=== PATIENT | female | born 1970 | race Caucasian/White ===

== ENCOUNTER 2018-12-13 18:48 | Inpatient (IN) | payer OTHER ==
[~2018-12-13] VITALS: Ht 170.2 cm; Wt 53.0 kg
[2018-12-13 19:14] LABS: BASOPHILS # (AUTO) 0.02 x10^3/uL (0-0.1); BASOPHILS % (AUTO) 0 % (0-1); EOSINOPHILS # (AUTO) 0.01 x10^3/uL (0-0.4); EOSINOPHILS % (AUTO) 0 % (1-7); LYMPHOCYTES # (AUTO) 1.09 x10^3/uL (1-3.4); LYMPHOCYTES % (AUTO) 13 % (22-44); MD NO; MEAN CORPUSCULAR HEMOGLOBIN 29.8 pg (27.0-34.8); MEAN CORPUSCULAR HGB CONC 32.1 g/dL (32.4-35.8); MEAN CORPUSCULAR VOLUME 92.8 fL (80-100); MEAN PLATELET VOLUME 7.6 fL (7.4-10.4); MONOCYTES % (AUTO) 2 % (2-9); NEUTROPHILS # (AUTO) 7.23 x10^3/uL (1.8-6.8); NEUTROPHILS % (AUTO) 85 % (42-75); PLATELET COUNT 383 x10^3/uL (130-400); RED BLOOD COUNT 4.48 x10^6/uL (3.82-5.3); RED CELL DISTRIBUTION WIDTH 19.3 % (9.6-15.2)
[2018-12-13 19:23] LABS: ALANINE AMINOTRANSFERASE 80 U/L (12-78); ALBUMIN 3.2 g/dL (3.4-5.0); ANION GAP 18 mmol/L (5-15); CHLORIDE 112 mmol/L (98-107); CREATININE 0.57 mg/dL (0.55-1.02)
[2018-12-13 19:28] LABS: ALKALINE PHOSPHATASE 93 U/L (45-117); BILIRUBIN,TOTAL 0.2 mg/dL (0.2-1.0); TOTAL PROTEIN 6.8 g/dL (6.4-8.2)
--- NOTE | 2018-12-13 19:32 | NUR ---
ON ARRIVAL PT CONVERSATIONAL. PT NOTED TO HAVE SHAKES AND FEELING COLD. 90.1 RECTAL TEMP. RODO HUGGER IN PLACE. REQUESTED PROTEIN DRINKS FROM DIETARY VIA VOICEMAIL. MEANWHILE PT PROVIDED GRAHMCRACKERS AND PEANUT BUTTER, SPRITE AND APPLESAUCE. PT CONVERSING WITH FAMILY
--- NOTE | 2018-12-13 20:08 | NUR ---
RODO REMAINS ON PT. PT ASSISTED ONTO BEDPAN. PROVIDED ENSURE DRINK.
--- NOTE | 2018-12-13 20:11 | NUR ---
REPORT RECEIVED FROM REAL VENEGAS TO ASSUME CARE OF PT. AT THIS TIME.
[2018-12-13 20:16] LABS: MICROSCOPIC AUTO
[2018-12-13] MEDS ORDERED: ONDANSETRON ODT 4 MG ONE (20:22)
[2018-12-13 20:23] LABS: CULTURE INDICATED? YES
--- NOTE | 2018-12-13 20:25 | NUR ---
PT. HAS SMALL AMOUNT OF EMESIS AFTER APPLESAUCE. NEW ORDERS RECEIVED FROM DR. HAINES FOR THIS AND PT. MEDICATED PER OCT. PT. DENIES ANY PAIN OR NAUSEA AT THIS TIME. LUIZA WARMER AND GOWN IN USE; BLANKETS IN USE. CALL LIGHT IN REACH. ALL MONITORS IN PLACE. ALL SAFETY MEASUSRS OBSERVED. PT. A&O X 4. SKIN PWD. RESP EVEN, NON-LABORED.
[2018-12-13] MEDS ORDERED: CEFTRIAXONE PMX 1GM/50ML 50 ML IV ONE (20:30)
[2018-12-13] MEDS ORDERED: ONDANSETRON ODT 4 MG PO ONE (20:30)
[2018-12-13] MEDS ORDERED: CEFTRIAXONE PMX 1GM/50ML 50 ML ONE (20:37)
--- NOTE | 2018-12-13 20:43 | NUR ---
DISCUSSED WITH DR. HAINES ABOUT BLOOD CULTURES PRIOR TO IV ABX; WILL WAIT TO HANG MED UNTIL 2 SETS OF BLOOD CULTURES OBTAINED.
--- NOTE | 2018-12-13 20:48 | NUR ---
DR. HAINES IN TO DISCUSS PLAN FOR ADMISSION WITH PT. AND AT BS.
--- NOTE | 2018-12-13 20:57 | NUR ---
LAB AT FOR BLOOD CULTURES.
--- NOTE | 2018-12-13 21:15 | NUR ---
ABX NOW INFUSING PER ORDER AFTER 2 SETS OF BLOOD CULTURES COMPLETED. PT. WITH LUCIO. LAUGHING WITH AT BS. ALL MONITORS REMAIN IN PLACE. CALL LIGHT IN REACH. ALL SAFETY MEASURES OBSERVED.
[2018-12-13 21:22] LABS: AMPHETAMINE SCREEN, URINE Negative (Negative); BARBITURATE SCREEN, URINE Negative (Negative); BENZODIAZEPINE SCREEN, URINE Negative (Negative); CANNABINOID SCREEN, URINE Positive (Negative); COCAINE SCREEN, URINE Negative (Negative); METHADONE SCREEN, URINE Negative (Negative); OPIATE SCREEN, URINE Negative (Negative)
--- NOTE | 2018-12-13 22:16 | NUR ---
REPORT TO REAL PATTERSON. FLOOR READY FOR PT. TRANSPORT.
[2018-12-13] MEDS: POTASSIUM CHLORIDE 20 MEQ, MAGNESIUM SULFATE 2 GM, THIAMINE 200 MG, MVI ADULT 10 ML, FO... IV SCH (22:19)
[2018-12-13] MEDS ORDERED: DEXTROSE 50%, 50ML SYRINGE IVPush PRN (22:30)
[2018-12-13] MEDS ORDERED: ENALAPRILAT 1.25 MG/ML, 2ML IVPush PRN (22:30)
[2018-12-13] MEDS ORDERED: DEXTROSE 4 GM TAB.CHEW PO PRN (22:30)
[2018-12-13] MEDS ORDERED: ACETAMINOPHEN 325 MG TABLET PO PRN (22:30)
[2018-12-13] MEDS ORDERED: PHARMACY MAY ADJ FOR RENAL FX MC PRN (22:30)
[2018-12-13] MEDS ORDERED: GLUCAGON 1 MG IM PRN (22:30)
[2018-12-13] MEDS ORDERED: CEFTRIAXONE PMX 1GM/50ML 50 ML IV SCH (22:30)
[2018-12-13] MEDS ORDERED: LACTATED RINGERS 1,000 ML IVBOLUS ONE (22:30)
[2018-12-13] MEDS ORDERED: ONDANSETRON 2MG/ML, 2ML IVPush PRN (22:30)
[2018-12-13 23:24] VITALS: BP 124/73
[2018-12-13 23:30] LABS: THYROID STIMULATING HORMONE 0.579 mIU/L (0.358-3.740)
[2018-12-14] MEDS: ENOXAPARIN 40 MG/0.4 ML SQ SCH ×2 (00:06→21:06)
[2018-12-14 00:57] LABS: BASOPHILS # (AUTO) 0.13 x10^3/uL (0-0.1); BASOPHILS % (AUTO) 1 % (0-1); EOSINOPHILS # (AUTO) 0.03 x10^3/uL (0-0.4); EOSINOPHILS % (AUTO) 0 % (1-7); LYMPHOCYTES # (AUTO) 1.24 x10^3/uL (1-3.4); LYMPHOCYTES % (AUTO) 13 % (22-44); MD NO; MEAN CORPUSCULAR HEMOGLOBIN 30.1 pg (27.0-34.8); MEAN CORPUSCULAR HGB CONC 32.8 g/dL (32.4-35.8); MEAN CORPUSCULAR VOLUME 91.6 fL (80-100); MEAN PLATELET VOLUME 7.6 fL (7.4-10.4); MONOCYTES # (AUTO) 0.67 x10^3/uL (0.2-0.8); MONOCYTES % (AUTO) 7 % (2-9); NEUTROPHILS # (AUTO) 7.26 x10^3/uL (1.8-6.8); NEUTROPHILS % (AUTO) 78 % (42-75); PLATELET COUNT 280 x10^3/uL (130-400); RED BLOOD COUNT 3.67 x10^6/uL (3.82-5.3); RED CELL DISTRIBUTION WIDTH 19.3 % (9.6-15.2)
[2018-12-14 00:58] VITALS: BP 121/70
[2018-12-14 01:02] LABS: ALANINE AMINOTRANSFERASE 60 U/L (12-78); ALBUMIN 2.6 g/dL (3.4-5.0); ANION GAP 12 mmol/L (5-15); CALCIUM 8.1 mg/dL (8.5-10.1); CHLORIDE 110 mmol/L (98-107)
[2018-12-14 01:04] LABS: ALKALINE PHOSPHATASE 67 U/L (45-117); BILIRUBIN,TOTAL 0.1 mg/dL (0.2-1.0); TOTAL PROTEIN 5.4 g/dL (6.4-8.2)
[2018-12-14] MEDS: POTASSIUM CHLORIDE 20 MEQ, MAGNESIUM SULFATE 2 GM, THIAMINE 200 MG, MVI ADULT 10 ML, FO... IV SCH (01:22)
[2018-12-14 06:50] VITALS: BP 113/77
[2018-12-14] MEDS: SODIUM CHLORIDE FLUSH 10ML SYR IVF SCH ×2 (09:37→21:06)
[2018-12-14 09:53] LABS: BASOPHILS # (AUTO) 0.03 x10^3/uL (0-0.1); BASOPHILS % (AUTO) 0 % (0-1); EOSINOPHILS # (AUTO) 0.01 x10^3/uL (0-0.4); EOSINOPHILS % (AUTO) 0 % (1-7); LYMPHOCYTES # (AUTO) 1.27 x10^3/uL (1-3.4); LYMPHOCYTES % (AUTO) 16 % (22-44); MD NO; MEAN CORPUSCULAR HEMOGLOBIN 29.1 pg (27.0-34.8); MEAN PLATELET VOLUME 7.6 fL (7.4-10.4); MONOCYTES # (AUTO) 0.37 x10^3/uL (0.2-0.8); MONOCYTES % (AUTO) 5 % (2-9); NEUTROPHILS # (AUTO) 6.52 x10^3/uL (1.8-6.8); NEUTROPHILS % (AUTO) 80 % (42-75); PLATELET COUNT 266 x10^3/uL (130-400); RED BLOOD COUNT 3.63 x10^6/uL (3.82-5.3); RED CELL DISTRIBUTION WIDTH 19.7 % (9.6-15.2)
[2018-12-14 10:11] LABS: ALANINE AMINOTRANSFERASE 54 U/L (12-78); CALCIUM 7.7 mg/dL (8.5-10.1); CREATININE 0.66 mg/dL (0.55-1.02)
[2018-12-14 10:41] LABS: ALBUMIN 2.7 g/dL (3.4-5.0); ALKALINE PHOSPHATASE 55 U/L (45-117); ANION GAP 8 mmol/L (5-15); BILIRUBIN,TOTAL 0.3 mg/dL (0.2-1.0); CHLORIDE 109 mmol/L (98-107); TOTAL PROTEIN 5.6 g/dL (6.4-8.2)
[2018-12-14 10:57] LABS: HEMOGLOBIN A1C 4.6 % (4.2-6.3)
[2018-12-14 12:27] VITALS: BP 113/78
[2018-12-14 19:26] VITALS: BP 101/68
[2018-12-15] MEDS ORDERED: POTASSIUM CHLORIDE 20 MEQ, MAGNESIUM SULFATE 2 GM, THIAMINE 200 MG, MVI ADULT 10 ML, FO... IV SCH (01:00)
[2018-12-15 01:31] VITALS: BP 110/72
[2018-12-15] MEDS ORDERED: MAGNESIUM SULFATE PMX 2GM/50ML 50 ML IV ONE (07:30)
[2018-12-15 07:51] VITALS: BP 114/73
[2018-12-15 08:36] LABS: BASOPHILS # (AUTO) 0.02 x10^3/uL (0-0.1); BASOPHILS % (AUTO) 0 % (0-1); EOSINOPHILS # (AUTO) 0.08 x10^3/uL (0-0.4); EOSINOPHILS % (AUTO) 2 % (1-7); LYMPHOCYTES % (AUTO) 35 % (22-44); MD NO; MEAN CORPUSCULAR HEMOGLOBIN 29.3 pg (27.0-34.8); MEAN CORPUSCULAR HGB CONC 32.4 g/dL (32.4-35.8); MEAN CORPUSCULAR VOLUME 90.6 fL (80-100); MEAN PLATELET VOLUME 7.6 fL (7.4-10.4); MONOCYTES # (AUTO) 0.33 x10^3/uL (0.2-0.8); MONOCYTES % (AUTO) 8 % (2-9); NEUTROPHILS % (AUTO) 56 % (42-75); PLATELET COUNT 215 x10^3/uL (130-400); RED BLOOD COUNT 3.64 x10^6/uL (3.82-5.3); RED CELL DISTRIBUTION WIDTH 19.3 % (9.6-15.2)
[2018-12-15 08:41] LABS: ANION GAP 6 mmol/L (5-15); CHLORIDE 109 mmol/L (98-107); CREATININE 0.51 mg/dL (0.55-1.02)
[2018-12-15] MEDS: NEUTRA PHOS K 250 MG TABLET PO SCH ×2 (10:19→16:31)
[2018-12-15] MEDS: SODIUM CHLORIDE FLUSH 10ML SYR IVF SCH (10:20)
[2018-12-15 13:59] VITALS: BP 107/68
[2018-12-15] MEDS ORDERED: FOLI-17 PO (14:34)
[2018-12-15] MEDS ORDERED: POTA500T PO (14:34)
[2018-12-15] MEDS ORDERED: CEPH-368 PO (14:34)
[2018-12-15] MEDS ORDERED: MAGN400T7 PO (14:34)
[2018-12-15] MEDS ORDERED: THIA100T67 PO (14:34)
[2018-12-16] MEDS ORDERED: POTASSIUM CHLORIDE 20 MEQ, MAGNESIUM SULFATE 2 GM, THIAMINE 200 MG, MVI ADULT 10 ML, FO... IV SCH (01:00)
== END 2018-12-15 17:06 | disposition home or self-care (01) | DRG 871 ==
LOC: ED 19:48 → EDIP 21:21 → 4NOR 22:30 → 5SO 23:21 → DCLOUNGE 12-15 16:57
PROVIDERS: ADMIT Family Medicine; ATTEND Family Medicine
DX: A41.9 Sepsis, unspecified organism (principal); E43 Unspecified severe protein-calorie malnutrition; G93.41 Metabolic encephalopathy; K72.00 Acute and subacute hepatic failure without coma; E87.2 Acidosis; N12 Tubulo-interstitial nephritis, not specified as acute or chronic; B96.20 Unspecified Escherichia coli [E. coli] as the cause of diseases classified elsewhere; D64.9 Anemia, unspecified; E16.2 Hypoglycemia, unspecified; E83.39 Other disorders of phosphorus metabolism; E83.42 Hypomagnesemia; F10.229 Alcohol dependence with intoxication, unspecified; F12.10 Cannabis abuse, uncomplicated; F17.200 Nicotine dependence, unspecified, uncomplicated; K70.9 Alcoholic liver disease, unspecified; M26.609 Unspecified temporomandibular joint disorder, unspecified side; Z66 Do not resuscitate
CPT/HCPCS: 36415; J7042; 71045; 76700; 80048; 80053; 80307; 81001; 83036; 83605; 83735; 84100; 84443; 84703; 85025; 87040; 87077; 87086; 87186; 96365; 99285; G0378; J0696; J1650; J3411; J3475; J3480; Q0162; J7120